=== PATIENT | male | born 1985 | race Caucasian/White ===

== ENCOUNTER 2020-05-08 16:39 | Emergency (ER) | payer OTHER ==
[~2020-05-08] VITALS: Ht 185.4 cm; Wt 154.2 kg
[2020-05-08] MEDS ORDERED: LISINOPRIL2.5 MG PO (16:59)
[2020-05-08 17:56] VITALS: BP 161/97
== END 2020-05-08 17:57 | disposition home or self-care (01) ==
LOC: M.ERS 16:39
DX: Z11.59 Encounter for screening for other viral diseases (principal); I10 Essential (primary) hypertension